=== PATIENT | male | born 1970 | race Caucasian/White ===

== ENCOUNTER 2019-11-23 09:15 | Outpatient (CLI) | payer OTHER ==
--- NOTE | 2019-11-23 09:59 | RAD ---
EXAM: XR Heel Rt 2 View STANDARD PROVIDED CLINICAL HISTORY: Pain COMPARISON: None FINDINGS: No evidence for fracture or other acute osseous abnormality. Conspicuous plantar calcaneal enthesophy te formation. Alignment appears anatomic. Joint spaces appear preserved. IMPRESSION: Conspicuous plantar calcaneal enthesophyte formation, which can be associated with plantar fasciitis.
== END 2019-11-23 09:16 | disposition home or self-care (01) ==
LOC: BICRAD 09:15
PROVIDERS: ATTEND Family Medicine
DX: M79.671 Pain in right foot (principal); M77.31 Calcaneal spur, right foot; Z12.5 Encounter for screening for malignant neoplasm of prostate; Z00.00 Encounter for general adult medical examination without abnormal findings; E56.9 Vitamin deficiency, unspecified; R94.6 Abnormal results of thyroid function studies
CPT/HCPCS: 36415; 80053; 80061; 81001; 82306; 82607; 82746; 84439; 84443; 85025; G0103